=== PATIENT | male | born 1990 | race African-American/Black ===

== ENCOUNTER 2016-08-24 11:37 | Emergency (ER) | payer OTHER ==
[~2016-08-24] VITALS: Ht 193 cm; Wt 150.0 kg
[~2016-08-24 11:37] MED LIST: ALBU6.7H INH; ALBUS PO; BENZ100 PO; GUAI600 PO; ROBIACUDC PO
[2016-08-24 11:42] VITALS: BP 138/75; PULSE 94; RESP 20; TEMP 98.8; O2SAT 99
--- NOTE | 2016-08-24 11:50 | PD ---
Physical Exam Time Seen by Provider: 11:49 Narrative 26 year old male with history of asthma presents to ED for evaluation of multiple nosebleeds over the last 4 days. Denies trauma. Has been having cold like symptoms. No fever or chills. No other symptoms Data Data Last Documented VS Vital Signs Date Time Temp Pulse Resp B/P Pulse Ox O2 Delivery O2 Flow Rate FiO2 08/24/16 11:42 98.8 94 20 138/75 99 MDM Medical Record Reviewed: Yes Supervised Visit with LEONEL: No Narrative Course 26 year old male presents to ED for evaluation of nosebleeds. Not currently bleeding. Appears well. VSS Condition: Stable Enedina rG Aug 24, 2016 11:50
[2016-08-24] MEDS ORDERED: AMOX500C PO (12:10)
--- NOTE | 2016-08-24 12:11 | PD ---
HPI Chief Complaint: Nosebleed Time Seen by Provider: 12:08 Travel History International Travel<30 days: No Contact w/Intl Traveler<30days: No Traveled to known affect area: No History of Present Illness HPI 26-year-old male presents to the emergency Department with complaint of frequent nose bleeds for the past 4 days while at work. Reports history of frequent nosebleeds for the past 7 years. Over the past 4 days he has had more than normal. He had 3 yesterday while at work into today. They lasted approximately 30 minutes and resolved on their own. Reports feeling dizzy yesterday but denies dizziness or lightheadedness today. Denies fever, chills, nausea, vomiting. Denies upper respiratory symptoms. Also is complaining of left lower dental pain since last . Denies facial edema, erythema. Has not taken any medications or tried any treatments to alleviate his symptoms. 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 Denies anticoagulants. History of asthma. No known allergies. No other modifying factors or associated signs and symptoms. PFSH Past Medical History Asthma: Yes Diabetes: Yes Social History Alcohol Use: No Tobacco Use: Yes Substance Use: No Allergies-Medications (Allergen,Severity, Reaction): Coded Allergies: No Known Allergies (Unverified , 08/24/16) Reported Meds & Prescriptions Reported Meds & Active Scripts Active Amoxicillin 500 Mg Cap 500 Mg PO BID 10 Days Mucinex 600 Mg Tab (Guaifenesin) 600 Mg Tabcr 600 Mg PO BID Robitussin Ac Udc (Guaifenesin/Codeine Phosphate) 10 Ml Syrp 10 Ml PO Q4H PRN Tessalon Perles (Benzonatate) 100 Mg Cap 200 Mg PO Q8H PRN 30 Days Proventil Hfa (Albuterol Sulfate) 6.7 Gm Aero 2 Puff INH Q4HR PRN * SHAKE WELL BEFORE USE * Reported Albuterol Sulfate 2 Mg/5 Ml Syp Unknown Dose PO QID Review of Systems Except as stated in HPI: all other systems reviewed are Neg Physical Exam Narrative GENERAL: Well-nourished, well-developed male patient, in no acute distress SKIN: Warm and dry. No rash. HEAD: Atraumatic. Normocephalic. No facial erythema or edema. EYES: Pupils equal and round at 3 mm with brisk reaction. No scleral icterus. No injection or drainage. PERRLA. ENT: Mucosa pink and moist. No erythema or exudates. No uvular edema. No uvular , palatal, or tonsillar deviation. Airway patent. Nasal turbinates appear erythematous with nasal blood noted to the right nares; without purulent drainage or septal hematoma. EARS: Bilateral pinnae and external canals appear within normal limits. Bilateral tympanic membranes without erythema, dullness or perforation. MOUTH: Mucous membranes moist, no lesions, tongue and gums appear normal. Left lower third molar with tenderness on palpation; surrounding gingiva without erythema, edema, drainage; no obvious abscess noted. NECK: Trachea midline. No lymphadenopathy. CARDIOVASCULAR: Regular rate and rhythm. No murmur appreciated. RESPIRATORY: No accessory muscle use. Clear to auscultation. Breath sounds equal bilaterally. GASTROINTESTINAL: Abdomen soft, non-tender, nondistended. Hepatic and splenic margins not palpable. Bowel sounds are active 4 quadrants. MUSCULOSKELETAL: No obvious deformities. No clubbing. No cyanosis. No edema. NEUROLOGICAL: Awake and alert. Oriented 3. No obvious cranial nerve deficits. Motor grossly within normal limits. Normal speech. Moves all extremities. 5/5 strength to all extremities. PSYCHIATRIC: Appropriate mood and affect; insight and judgment normal. Data Data Last Documented VS Vital Signs Date Time Temp Pulse Resp B/P Pulse Ox O2 Delivery O2 Flow Rate FiO2 08/24/16 11:42 98.8 94 20 138/75 99 MDM Medical Decision Making Medical Screen Exam Complete: Yes Emergency Medical Condition: Yes Medical Record Reviewed: Yes Differential Diagnosis Epistaxis, dentalgia, dental abscess, seasonal allergies Narrative Course 26-year-old male with history of recurrent epistaxis with increased in nosebleeds over the past 4 days. Denies upper respiratory symptoms. Denies fever, chills, nausea, vomiting. Nosebleeds are self resolving within approximately 30 minutes of starting. No current nosebleed in the ER. Patient also complaining of dentalgia to left lower third molar. No facial erythema or edema. Patient instructed to follow up with ENT and dentist. Amoxicillin prescribed for home. Instructed patient to take Tylenol as directed and as needed for pain. Patient verbalizes understanding and agreement with treatment plan. Patient is medically cleared and stable for discharge. Discussed reasons to return to the emergency department. Instructed patient to follow up with primary care provider. Patient agrees with treatment plan. The patients vital signs are stable and the patient is stable for outpatient follow-up and treatment. Patient discharged home, stable and in no acute distress. Diagnosis Primary Impression: Dentalgia Additional Impression: Epistaxis, recurrent Referrals: Dentist Ear / Nose / Throat Specialist Primary Care Physician Patient Instructions: Dental Abscess (ED), Epistaxis (DC), General Instructions , Toothache (ED) Departure Forms: Tests/Procedures, Work Release Enter return to work date: Aug 25, 2016 Additional Instructions: Complete full course of antibiotics Tylenol as directed and as needed to reduce pain and inflammation Warm compresses to the affected area Follow-up with dentist Follow-up with primary care provider Return to emergency department immediately with worsening of symptoms, particularly as discussed Med/Other Pt SpecificInfo: Prescription(s) given Scripts Amoxicillin 500 Mg Qnr506 Mg PO BID 10 Days Ref 0 Prov:Mikki Aguirre 08/24/16 Disposition: 01 DISCHARGE HOME Condition: Stable Mikki Aguirre Aug 24, 2016 12:11
== END 2016-08-24 12:30 | disposition home or self-care (01) ==
LOC: NEPK 11:37
DX: K08.89 Other specified disorders of teeth and supporting structures (principal); R04.0 Epistaxis; E11.9 Type 2 diabetes mellitus without complications; Z72.0 Tobacco use; Z87.09 Personal history of other diseases of the respiratory system
CPT/HCPCS: 99283

== ENCOUNTER 2017-05-16 16:09 | Emergency (ER) | payer SELFPAY ==
[~2017-05-16 16:09] MED LIST changes: +AMOX500C PO
[2017-05-16 16:12] VITALS: BP 160/80; PULSE 80; RESP 18; TEMP 98.8; O2SAT 97
[2017-05-16 18:16] LABS: AUTOMATED NEUTROPHIL # 2.1 TH/MM3 (1.8-7.7); BASOPHIL % 0.4 % (0.0-2.0); EOSINOPHIL # 0.2 TH/MM3 (0-0.4); EOSINOPHIL % 3.6 % (0.0-4.0); HEMATOCRIT 43.3 % (39.0-51.0); LYMPH % 49.8 % (9.0-44.0); LYMPHOCYTE # 2.9 TH/MM3 (1.0-4.8); MEAN CELL VOLUME 90.3 FL (80.0-100.0); MEAN CORPUSCULAR HEMOGLOBIN 31.4 PG (27.0-34.0); MEAN CORPUSCULAR HGB CONC 34.7 % (32.0-36.0); MEAN PLATELET VOLUME 8.5 FL (7.0-11.0); MONO % 10.1 % (0.0-8.0); MONOCYTE # 0.6 TH/MM3 (0-0.9); NEUT % 36.1 % (16.0-70.0); PLATELET COUNT 252 TH/MM3 (150-450); RED BLOOD COUNT 4.79 MIL/MM3 (4.50-5.90); RED CELL DISTRIBUTION WIDTH 13.5 % (11.6-17.2); WHITE BLOOD COUNT 5.9 TH/MM3 (4.0-11.0)
[2017-05-16 18:38] LABS: ALBUMIN 3.6 GM/DL (3.4-5.0); AST (GOT) 14 U/L (15-37); BICARBONATE 28.3 MEQ/L (21.0-32.0); BLOOD UREA NITROGEN 7 MG/DL (7-18); CALCIUM 8.9 MG/DL (8.5-10.1); CHLORIDE 104 MEQ/L (98-107); CREATININE 0.81 MG/DL (0.60-1.30); GLOMERULAR FILTRATION RATE 141 ML/MIN (>89); GLUCOSE,RANDOM 79 MG/DL (74-106); LIPASE 96 U/L (73-393); SODIUM (NA) 138 MEQ/L (136-145)
[2017-05-16 18:39] LABS: ALT (GPT) 16 U/L (12-78)
[2017-05-16 18:41] LABS: ALKALINE PHOSPHATASE 69 U/L (45-117); TOTAL BILIRUBIN ADULT 0.6 MG/DL (0.2-1.0); TOTAL PROTEIN 8.1 GM/DL (6.4-8.2)
--- NOTE | 2017-05-16 20:59 | PD ---
HPI Chief Complaint: GI Complaint Time Seen by Provider: 20:26 Travel History International Travel<30 days: No Contact w/Intl Traveler<30days: No Traveled to known affect area: No History of Present Illness HPI 27-year-old male with history of asthma here for evaluation of cough, nasal congestion, vomiting, and diarrhea. Symptoms started about 3 days ago with cough and nasal congestion. Cough is nonproductive. No hemoptysis. He states that when he coughs he has substernal chest discomfort described as sharp. He also has this pain with movement and palpation. No history of DVT or PE. He has slight shortness of breath at rest, worse with exertion. Since yesterday evening he has been nauseous and has had several episodes of vomiting and diarrhea. Emesis and bowel movements are nonbloody. No abdominal pain. He is unsure if he has had a fever. PFSH Past Medical History Asthma: Yes Diabetes: Yes Social History Alcohol Use: No Tobacco Use: Yes Substance Use: No Allergies-Medications (Allergen,Severity, Reaction): Coded Allergies: No Known Allergies (Unverified , 08/24/16) Reported Meds & Prescriptions Reported Meds & Active Scripts Active Amoxicillin 500 Mg Cap 500 Mg PO BID 10 Days Mucinex 600 Mg Tab (Guaifenesin) 600 Mg Tabcr 600 Mg PO BID Robitussin Ac Udc (Guaifenesin/Codeine Phosphate) 10 Ml Syrp 10 Ml PO Q4H PRN Tessalon Perles (Benzonatate) 100 Mg Cap 200 Mg PO Q8H PRN 30 Days Proventil Hfa (Albuterol Sulfate) 6.7 Gm Aero 2 Puff INH Q4HR PRN * SHAKE WELL BEFORE USE * Reported Albuterol Sulfate 2 Mg/5 Ml Syp Unknown Dose PO QID Review of Systems Except as stated in HPI: all other systems reviewed are Neg Physical Exam Narrative GENERAL: Well-developed, well-nourished, overweight, comfortable, no apparent distress. SKIN: Focused skin assessment warm/dry. HEAD: Atraumatic. Normocephalic. EYES: Pupils equal and round. No scleral icterus. No injection or drainage. ENT: Mucous membranes pink and moist. NECK: Trachea midline. No JVD. CARDIOVASCULAR: Regular rate and rhythm. RESPIRATORY: No accessory muscle use. Slight end expiratory wheezes bilaterally. No rales or rhonchi. Breath sounds equal bilaterally. GASTROINTESTINAL: Abdomen soft, non-tender, nondistended. MUSCULOSKELETAL: No obvious deformities. No clubbing. No cyanosis. No edema. NEUROLOGICAL: Awake and alert. No obvious cranial nerve deficits. Motor grossly within normal limits. Normal speech. PSYCHIATRIC: Appropriate mood and affect; insight and judgment normal. Data Data Last Documented VS Vital Signs Date Time Temp Pulse Resp B/P (MAP) Pulse Ox O2 Delivery O2 Flow Rate FiO2 05/16/17 16:12 98.8 80 18 160/80 (106) 97 Orders Orders Complete Blood Count With Diff (05/16/17 16:34) Comprehensive Metabolic Panel (05/16/17 16:34) Lipase (05/16/17 16:34) Chest, Single Ap (05/16/17 ) Influenzae A/B Antigen (05/16/17 20:41) Group A Rapid Strep Screen (05/16/17 20:41) Albuterol-Ipratropium Neb (Duoneb Neb) (05/16/17 21:00) Prednisone (Deltasone) (05/16/17 21:00) Ondansetron Odt (Zofran Odt) (05/16/17 21:00) Electrocardiogram (05/16/17 ) Strep Culture (Group A) (05/16/17 20:50) Labs Laboratory Tests Test 05/16/17 17:28 White Blood Count 5.9 TH/MM3 Red Blood Count 4.79 MIL/MM3 Hemoglobin 15.0 GM/DL Hematocrit 43.3 % Mean Corpuscular Volume 90.3 FL Mean Corpuscular Hemoglobin 31.4 PG Mean Corpuscular Hemoglobin Concent 34.7 % Red Cell Distribution Width 13.5 % Platelet Count 252 TH/MM3 Mean Platelet Volume 8.5 FL Neutrophils (%) (Auto) 36.1 % Lymphocytes (%) (Auto) 49.8 % Monocytes (%) (Auto) 10.1 % Eosinophils (%) (Auto) 3.6 % Basophils (%) (Auto) 0.4 % Neutrophils # (Auto) 2.1 TH/MM3 Lymphocytes # (Auto) 2.9 TH/MM3 Monocytes # (Auto) 0.6 TH/MM3 Eosinophils # (Auto) 0.2 TH/MM3 Basophils # (Auto) 0.0 TH/MM3 CBC Comment DIFF FINAL Differential Comment Blood Urea Nitrogen 7 MG/DL Creatinine 0.81 MG/DL Random Glucose 79 MG/DL Total Protein 8.1 GM/DL Albumin 3.6 GM/DL Calcium Level 8.9 MG/DL Alkaline Phosphatase 69 U/L Aspartate Amino Transf (AST/SGOT) 14 U/L Alanine Aminotransferase (ALT/SGPT) 16 U/L Total Bilirubin 0.6 MG/DL Sodium Level 138 MEQ/L Potassium Level 3.8 MEQ/L Chloride Level 104 MEQ/L Carbon Dioxide Level 28.3 MEQ/L Anion Gap 6 MEQ/L Estimat Glomerular Filtration Rate 141 ML/MIN Lipase 96 U/L [facility] Medical Decision Making Medical Screen Exam Complete: Yes Emergency Medical Condition: Yes Interpretation(s) EKG: Sinus, rate 59, normal axis, normal intervals, no acute ischemic abnormality. Differential Diagnosis URI, viral illness, asthma exacerbation, gastroenteritis, dehydration, metabolic abnormality Narrative Course Vital signs show heart rate 80, blood pressure 160/80, pulse ox 97% on room air , tympanic temp of 98.8F. CBC: WBC 5.9, hemoglobin 15, hematocrit 43.3, platelets 252, lymphocytes 50%, monocytes 10%. CMP is unremarkable. Lipase is 96. Chest x-ray: Normal exam. Influenza is negative. Group A strep is negative. The patient was given 3 DuoNeb treatments, oral Zofran, and oral prednisone, and on reassessment he feels improved. He is resting comfortably. He is in no respiratory distress. His abdominal exam was benign. He is likely suffering from a viral URI which is triggering his asthma. Plan is to discharge him home with a prescription for albuterol, prednisone, and have him follow-up as an outpatient with a primary care physician this week. He has no primary care physician, so i will give him information to the [facility]. He was advised on when to return to the emergency department. He verbalizes understanding and agreement with plan. Diagnosis Primary Impression: URI (upper respiratory infection) Qualified Codes: J06.9 - Acute upper respiratory infection, unspecified Additional Impression: Asthma exacerbation Qualified Codes: J45.901 - Unspecified asthma with (acute) exacerbation Referrals: [facility] 3 days Additional Instructions: Follow-up with a primary care physician this week. Take medications as prescribed. Stay hydrated with plenty of fluids. Return to the emergency department for worsening symptoms or any other concerns as discussed. Scripts Prednisone (Prednisone) 50 Mg Tab 50 MG PO DAILY for 5 Days, #5 TAB 0 Refills Prov: Kiran Brown MD 05/16/17 Albuterol 18 GM Inh (Ventolin Hfa 18 GM Inh) 90 Mcg/Act Aer 2 PUFF INH Q4-6H Y for SHORTNESS OF BREATH, #1 INHALER 0 Refills Prov: Kiran Brown MD 05/16/17 Disposition: 01 DISCHARGE HOME Condition: Stable Kiran Brown MD May 16, 2017 20:59
[2017-05-16] MEDS ORDERED: ONDANSETRON ODT 4 MG TAB PO ONE (21:00)
[2017-05-16] MEDS ORDERED: predniSONE 50 MG TAB PO ONE (21:00)
--- NOTE | 2017-05-16 21:20 | RADRPT ---
EXAM DATE/TIME: 05/16/2017 21:04 [place] COMPARISON: No previous studies available for comparison. INDICATIONS : Cough with chest pain. MEDICAL HISTORY : Asthma. SURGICAL HISTORY : None. ENCOUNTER: Initial ACUITY: 4 - 6 days PAIN SCORE: 8/10 LOCATION: Bilateral chest FINDINGS: A single view of the chest demonstrates the lungs to be symmetrically aerated without evidence of mas s, infiltrate or effusion. The cardiomediastinal contours are unremarkable. Osseous structures are intact. CONCLUSION: Normal examination. Ricardo Bojorquez MD on May 16, 2017 at 21:18 Board Certified Radiologist. This report was verified electronically.
[2017-05-16] MEDS ORDERED: PRED50 PO (22:36)
[2017-05-16] MEDS ORDERED: VENTAER INH (22:36)
[2017-05-16] MEDS: RESP: ALBUTEROL 2.5 MG/IPRATROPIUM 0.5 MG NEB (SCH) INH (22:45)
--- NOTE | 2017-05-17 14:12 | EKG ---
Date Performed: 05/16/2017 Time Performed: 21:41:41 PTAGE: 27 years EKG: SINUS BRADYCARDIA WITH SINUS ARRHYTHMIA POSSIBLE RIGHT VENTRICULAR CONDUCTION DELAY BORDERL INE ECG NO PREVIOUS TRACING DOCTOR: Reed Logan Interpretating Date/Time 05/17/2017 14:12:18
== END 2017-05-16 23:15 | disposition home or self-care (01) ==
LOC: NEPD 16:09
DX: J06.9 Acute upper respiratory infection, unspecified (principal); J45.901 Unspecified asthma with (acute) exacerbation; R11.2 Nausea with vomiting, unspecified; R19.7 Diarrhea, unspecified; R00.1 Bradycardia, unspecified; I49.9 Cardiac arrhythmia, unspecified; Z72.0 Tobacco use; Z79.51 Long term (current) use of inhaled steroids; Z79.899 Other long term (current) drug therapy
CPT/HCPCS: 71045; 80053; 83690; 85025; 87081; 87804; 87880; 93005; 94640; 94664; 99285; J7512